=== PATIENT | female | born 1980 | race Hispanic/Latino ===

== ENCOUNTER 2019-02-03 08:04 | Outpatient (CLI) | payer OTHER ==
--- NOTE | 2019-02-03 10:43 | Ultrasound Report ---
BILATERAL DIGITAL DIAGNOSTIC MAMMOGRAM WITH CAD RIGHT BREAST ULTRASOUND INDICATION: Right palpable breast lump. TECHNIQUE: Digital bilateral mammographic imaging was performed. This examination was interpreted wi th the benefit of Computer-Aided Detection (CAD) analysis. COMPARISON: None. FINDINGS: Breast Density: There are scattered areas of fibroglandular density. A 7 mm oval benign coil cyst is identified near a right inner palpable marker. No other mass and no a rchitectural distortion or suspicious calcifications of either breast. Ultrasound Findings: Targeted ultrasound evaluation was performed of the area of interest. An oval complex relatively smooth mass at 2:00 9 cm from the nipple correlates with the palpable lump and it correlates with the benign oil cyst on the mammogram. It measures 7 x 6 x 5 mm. IMPRESSION: A benign 7 mm oil cyst of the right breast at 2:00 9 cm from the nipple. No suspicious fi nding of either breast. BI-RADS Category 2: Benign. Unless otherwise clinically indicated, recommend [facility] at age 42. A "normal" or negative report should not discourage follow up or biopsy of a clinically significant f inding. A written summary of these findings will be mailed to the patient. The patient will be entered into a mammography reporting system which will generate a reminder letter for the patient's next appointmen t at the appropriate interval. FURTHER INFORMATION: According to the [employer], yearly mammograms are recommend ed starting at age 40 andANDntinuing as long as a woman is in good health. Breast MRI is recommended for women with an approximately 20-25% or greater lifetime risk of breast cancer, including women wi th a strong family history of breast or ovarian cancer and women who have been treated for Hodgkin's disease. Signer Name: Tunde Espino MD Signed: 02/03/2019 10:38 AM Workstation Name: [id number]
== END 2019-02-03 08:05 | disposition home or self-care (01) ==
LOC: MAMMO 08:04
PROVIDERS: ATTEND Nurse Practitioner
DX: N60.01 Solitary cyst of right breast (principal)
CPT/HCPCS: 77066

== ENCOUNTER 2020-05-18 18:36 | Emergency (ER) | payer SELFPAY ==
[2020-05-18 20:09] VITALS: BP 133/90
[2020-05-18 20:39] LABS: Basophils # (Auto) 0.1 K/mm3 (0.0-0.1); Basophils % (Auto) 0.8 % (0.0-1.8); Eosinophils # (Auto) 0.1 K/mm3 (0.0-0.4); Eosinophils % (Auto) 1.1 % (0.0-4.3); Hematocrit 49.9 % (30.3-42.9); Hemoglobin 16.9 gm/dl (10.1-14.3); Lymphocytes # (Auto) 1.1 K/mm3 (1.2-5.4); Mean Corpuscular HGB Conc 34 % (30-34); Mean Corpuscular Volume 105 fl (79-97); Monocytes # (Auto) 0.6 K/mm3 (0.0-0.8); Monocytes % (Auto) 8.2 % (0.0-7.3); Platelet Count 278 K/mm3 (140-440); Red Blood Count 4.78 M/mm3 (3.65-5.03); Red Cell Distribution Width 14.7 % (13.2-15.2)
[2020-05-18 21:20] LABS: Alanine Aminotransferase 116 units/L (7-56); Albumin 4.3 g/dL (3.9-5); Blood Urea Nitrogen 5 mg/dL (7-17); Hemolysis Index 14
[2020-05-18 21:21] LABS: BUN/Creatinine Ratio 8
== END 2020-05-19 | disposition left against medical advice (07) ==
LOC: ED 18:36
DX: R10.9 Unspecified abdominal pain (principal); R11.10 Vomiting, unspecified; Z53.21 Procedure and treatment not carried out due to patient leaving prior to being seen by health care provider
CPT/HCPCS: 36415; 80053; 83690; 84703; 85025

== ENCOUNTER 2021-08-05 11:16 | Inpatient (IN) | payer SELFPAY ==
[2021-08-05] MEDS ORDERED: SODIUM CHLORIDE 0.9% 1000 ML 1,000 ML IV ONE (11:45)
[2021-08-05] MEDS ORDERED: ACETAMINOPHEN 500 MG TAB PO ONE (11:45)
[2021-08-05] MEDS ORDERED: LIDOCAINE-MPF (1%) 10 MG/1 ML VIAL 5 ML INFILTRATI ONE (11:58)
[2021-08-05] MEDS ORDERED: AZITHROMYCIN 250 MG TAB PO ONE (11:59)
[2021-08-05] MEDS ORDERED: KETOROLAC 30 MG/1 ML INJ IV ONE (12:01)
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
--- NOTE | 2021-08-05 12:11 | XRay Report ---
CHEST 1 VIEW INDICATION / CLINICAL INFORMATION: COUGH STUDY TIME: 1136 COMPARISON: None available. FINDINGS: SUPPORT DEVICES: None HEART / MEDIASTINUM: No significant abnormality. LUNGS / PLEURA: No significant acute pulmonary or pleural abnormality. No pneumothorax. ADDITIONAL FINDINGS: No significant additional findings. IMPRESSION: No significant acute abnormality Signer Name: Mario Rangel MD Signed: 08/05/2021 12:07 PM Workstation Name: [id number]
--- NOTE | 2021-08-05 12:31 | XRay Report ---
RIGHT KNEE 2 VIEWS 1140 INDICATION: NONE WEIGHT BEARING COMPARISON: None available. FINDINGS: Portable AP and lateral views show no fractures or dislocations. There may be a small joint effusion. No significant arthritic changes are noted. Signer Name: Mario Rangel MD Signed: 08/05/2021 12:27 PM Workstation Name: [id number]
[2021-08-05] MEDS ORDERED: HYDROmorphone 1 MG/1 ML INJ IV ONE (12:35)
[2021-08-05] MEDS ORDERED: ONDANSETRON 4 MG/2 ML INJ IV ONE (12:35)
[2021-08-05 13:02] LABS: Alanine Aminotransferase 196 units/L (7-56); Albumin 3.2 g/dL (3.9-5); BUN/Creatinine Ratio 19; Bilirubin,Direct 0.9 mg/dL (0-0.2); Blood Urea Nitrogen 15 mg/dL (7-17); Calcium 9.1 mg/dL (8.4-10.2); Hemolysis Index 5
[2021-08-05 13:17] LABS: Hematocrit 41.7 % (30.3-42.9); Hemoglobin 14.4 gm/dl (10.1-14.3); INR 0.85 (0.87-1.13); Mean Corpuscular HGB Conc 35 % (30-34); Mean Corpuscular Volume 105 fl (79-97); Platelet Count 141 K/mm3 (140-440); Red Blood Count 3.96 M/mm3 (3.65-5.03); Red Cell Distribution Width 14.5 % (13.2-15.2)
[2021-08-05] MEDS ORDERED: LORazepam 2 MG/ML VIAL IV PRN ×3 (13:24→19:30)
[2021-08-05 13:52] LABS: Total Cells Counted 100
[2021-08-05 13:53] LABS: Band Neutrophils # (Manual) 0.8 K/mm3; Eosinophils % (Manual) 0 % (0.0-4.3); Giant Platelets Few; Platelet Estimate Consistent w Auto; RBC Morphology Normal
[2021-08-05] MEDS ORDERED: POTASSIUM CHLORIDE ER 20 MEQ TAB PO ONE (13:55)
--- NOTE | 2021-08-05 15:06 | Cat Scan Report ---
CTA CHEST WITH IV CONTRAST INDICATION: pleuritic pain, SOB, assess for PE. TECHNIQUE: Axial CT images were obtained through the chest after injection of IV contrast. 3 plane MIP reconstru ctions were produced. All CT scans at this location are performed using CT dose reduction for ALARA b y means of automated exposure control. COMPARISON: None available. FINDINGS: Pulmonary Arteries: No pulmonary emboli. Thoracic Aorta: No acute abnormality. Heart: Normal. Lungs: There is minimal focal airspace disease in the periphery of the right lobe inferolaterally. Mckenna ngs are otherwise clear. Pleura: No pleural effusion. No pneumothorax. Lymph Nodes: No significant adenopathy. Additional Findings: None. Upper Abdomen: No acute findings. Skeletal Structures: No significant osseous abnormality. IMPRESSION: 1. No CT evidence for pulmonary embolism. 2. Minimal focal airspace disease in the inferolateral right upper lobe. This could be a small focus of pneumonia but is nonspecific. Minimal subsegmental atelectasis could have this appearance. Lungs a re otherwise clear, and there is no pleural abnormality. Signer Name: Ventura Lopez MD Signed: 08/05/2021 3:02 PM Workstation Name: [id number]
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
[2021-08-05] MEDS ORDERED: AZITHROMYCIN/NS 500 MG/250 ML 500 MG/250 ML BAG IV ONE (15:37)
[2021-08-05] MEDS: cefTRIAXone/NS 1 GM/50 ML 1 GM/50 ML BAG IV ONE ×2 (15:54→17:35)
[2021-08-05] MEDS ORDERED: cefTRIAXone/NS 1 GM/50 ML 1 GM/50 ML BAG IV ONE (18:00)
[2021-08-05] MEDS ORDERED: K-PHOS NEUTRAL 250 MG TAB PO ONE (18:34)
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
[2021-08-05] MEDS ORDERED: ACETAMINOPHEN 325 MG TAB PO PRN (19:13)
[2021-08-05] MEDS ORDERED: ONDANSETRON 4 MG/2 ML INJ IV PRN (19:13)
[2021-08-05] MEDS ORDERED: oxyCODONE /ACETAMINOPHEN 5-325MG TAB PO PRN (19:20)
[2021-08-05] MEDS ORDERED: HYDROmorphone 1 MG/1 ML INJ IV PRN (19:20)
[2021-08-05] MEDS ORDERED: METOCLOPRAMIDE 10 MG/2 ML INJ IV PRN (19:20)
[2021-08-05] MEDS ORDERED: SODIUM CHLORIDE 3% 500 ML IV ONE (19:27)
[2021-08-05] MEDS ORDERED: D5W/0.9% NACL 1,000 ML IV SCH (20:00)
[2021-08-05 20:57] LABS: Hepatitis B Surface Antigen Non-Reactive (Negative); Hepatitis C Virus Antibody Reactive (NonReactive)
[2021-08-05 21:17] LABS: Bilirubin,Urine NEG (Negative); Blood,Urine MOD (Negative); Color,Urine Amber (Yellow); Protein,Urine <15 mg/dL mg/dL (Negative); Urobilinogen,Urine < 2.0 mg/dL (<2.0)
[2021-08-05 21:25] LABS: Benzodiazepines Screen,Urine Negative; Cannabinoid Screen,Urine Negative; Cocaine Screen,Urine Negative; Methadone Screen,Urine Negative; Opiate Screen,Urine Negative
[2021-08-05] MEDS ORDERED: FAMOTIDINE 20 MG/2 ML INJ IV SCH (22:00)
[2021-08-05] MEDS ORDERED: HEPARIN 5,000 UNIT/1 ML VIAL SUB-Q SCH (22:00)
[2021-08-05 22:12] LABS: Amphetamine Screen,Urine PRESUMPTIVE POSITIVE
[2021-08-06 00:29] VITALS: BP 108/66
[2021-08-06 05:21] LABS: Hematocrit 36.7 % (30.3-42.9); Hemoglobin 12.6 gm/dl (10.1-14.3); Mean Corpuscular HGB Conc 34 % (30-34); Mean Corpuscular Volume 106 fl (79-97); Platelet Count 120 K/mm3 (140-440); Red Blood Count 3.45 M/mm3 (3.65-5.03); Red Cell Distribution Width 14.8 % (13.2-15.2)
[2021-08-06 05:42] LABS: Alanine Aminotransferase 127 units/L (7-56); Albumin 2.8 g/dL (3.9-5); Blood Urea Nitrogen 24 mg/dL (7-17); Calcium 8.4 mg/dL (8.4-10.2); Hemolysis Index 4
[2021-08-06 05:43] LABS: BUN/Creatinine Ratio 34
[2021-08-06 06:23] LABS: Anisocytosis 1+; Band Neutrophils # (Manual) 0.2 K/mm3; Basophils % (Manual) 0 % (0.0-1.8); Eosinophils % (Manual) 0 % (0.0-4.3); Platelet Estimate Consistent w Auto; Total Cells Counted 100
--- NOTE | 2021-08-06 09:08 | Electrocardiograph Report ---
[facility] Test Date: 2021-08-05 Test Time: 11:48:20 Pat Name: LEANDER MCDANIEL Department: Room: A391 Gender: F Vessel Master: PHAM : 1980 Requested By: ANNY ROBERTSON Order Number: [id number] Reading MD: Lola Rock Measurements Intervals [place] Rate: 117 P: 66 LA: 164 QRS: 60 QRSD: 73 T: 38 QT: 309 QTc: 432 Interpretive Statements Sinus tachycardia Anteroseptal infarct, age indeterminate No previous ECG available for comparison Electronically Signed On 08-06-2021 9:08:15 EST by Lola oRck
== END 2021-08-06 05:46 | disposition left against medical advice (07) | DRG 760 ==
LOC: ED 11:16 → 3A 14:00
PROVIDERS: ADMIT Internal Medicine; ATTEND Internal Medicine
DX: S30.23XA Contusion of vagina and vulva, initial encounter (principal); J18.9 Pneumonia, unspecified organism; E87.1 Hypo-osmolality and hyponatremia; F10.20 Alcohol dependence, uncomplicated; B19.20 Unspecified viral hepatitis C without hepatic coma; F17.200 Nicotine dependence, unspecified, uncomplicated; K64.5 Perianal venous thrombosis; W18.39XA Other fall on same level, initial encounter; Y93.89 Activity, other specified; Y92.89 Other specified places as the place of occurrence of the external cause; Y99.8 Other external cause status; E87.6 Hypokalemia; E83.39 Other disorders of phosphorus metabolism; Z53.29 Procedure and treatment not carried out because of patient's decision for other reasons
CPT/HCPCS: 36415; 71045; 71275; 74177; 80048; 80053; 80074; 80076; 80307; 80320; 81001; 82140; 83690; 83735; 83880; 84100; 84484; 84703; 85007; 85025; 85610; 85730; 87040; 87086; 93005; 93010; G0378; J3490; Q0162; G0480; J0696; J1170; J1644; J2060; J2405; J7030; Q9967